=== PATIENT | male | born 1965 | race Caucasian/White ===

== ENCOUNTER → 2019-07-14 | Outpatient (CLI) | payer BC ==
[2015-06-28 10:30] VITALS: BP 127/87
[~2019-07-14] MED LIST: AMLO5TAB10 PO; HYDR-2765 PO
--- NOTE | 2019-07-14 11:10 | RAD ---
AP and Lateral Views of the Chest 07/14/2019 12:00 AM Indication: Bilateral upper respiratory tract infection Comparison: Chest radiograph July 17, 2015 Findings: There is no focal consolidation or infiltrate identified. Heart size is normal. There is no evidence of pneumothorax or pleural effusion. No acute osseous abnormalities are identified. Impression: No evidence of acute cardiopulmonary process. Electronically signed by: Sal Reis MD (07/14/2019 11:07 AM) [id number]
== END | disposition home or self-care (01) ==
LOC: RAD 10:40
PROVIDERS: ATTEND Physician Assistant Medical
DX: J06.9 Acute upper respiratory infection, unspecified (principal)
CPT/HCPCS: 71046

== ENCOUNTER → 2019-11-23 | Outpatient (CLI) | payer BC ==
[2015-06-28 10:30] VITALS: BP 127/87
[~2019-11-23] MED LIST changes: +CONTRAST GIVEN. MC PRN; +IOHEXOL 240 MG/ML 50ML VIAL. PO ONE; +IOHEXOL 300 MG/ML 100ML VIAL. IV ONE
--- NOTE | 2019-11-23 17:42 | RAD ---
Examination: CT ABD PELV W/ORAL IV CONTRAST History: Reason: Diverticulitis of colon,lower abd pain s/p colectomy, ventral inc hernia / Spl. Instructions: omni 300 75ml omni 240 30ml / History: Comparison/Correlation: None Findings: Axial images of the abdomen and pelvis were obtained following IV and oral contrast. Sagittal and coronal reformatted images were provided. The visualized lung bases are clear. The liver, spleen, pancreas, adrenal glands, and right kidney are normal. Left renal inferior pole cyst measuring 1.2 cm diameter is present. No enlarged abdominal or pelvic lymph nodes. No ascites or pelvic free fluid. Appendix is not delineated. Moderate quantity of stool in the colon is present. Mild diverticulosis is present. Suture material is present involving the distal sigmoid colon. Large ventral hernia involving the upper abdomen to the mid pelvic level is present containing nonstrangulated small bowel. Omental fat also evident. This hernia measures up to 22 cm transverse by 18.4 cm longitudinal. Smaller ventral hernia defects containing omental fat are present just superior to this large hernia. Bilateral inguinal hernias containing omental fat. Urinary bladder is unremarkable. Facet joint degenerative changes at L5-S1 are present. Impression: Large ventral abdominal wall hernia. Small hernia defects also seen. Diverticulosis. PQRS Compliance Statement: One or more of the following individualized dose reduction techniques were utilized for this examination: 1. Automated exposure control 2. Adjustment of the mA and/or kV according to patient size 3. Use of iterative reconstruction technique Electronically signed by: Anibal Rodriguez MD (11/23/2019 5:39 PM) [id number]
== END | disposition home or self-care (01) ==
LOC: CT 12:09
PROVIDERS: ATTEND Internal Medicine
DX: K40.20 Bilateral inguinal hernia, without obstruction or gangrene, not specified as recurrent (principal); N40.1 Benign prostatic hyperplasia with lower urinary tract symptoms; K43.2 Incisional hernia without obstruction or gangrene; R19.8 Other specified symptoms and signs involving the digestive system and abdomen; K43.9 Ventral hernia without obstruction or gangrene; K57.30 Diverticulosis of large intestine without perforation or abscess without bleeding
CPT/HCPCS: 74177; Q9966; Q9967